=== PATIENT | male | born 1980 | race Caucasian/White ===

== ENCOUNTER 2017-10-22 09:42 | Emergency (ER) | payer BC, SELFPAY ==
[2017-10-22 09:44] VITALS: BP 165/107; PULSE 106; RESP 16; TEMP 37.4; O2SAT 99; BMI 31.1
--- NOTE | 2017-10-22 10:00 | ED.VISSUMM ---
- ER Visit Summary Date of Service: 10/22/17 Chief Complaint: Abdominal pain History of Present Illness: The patient is a [address] Rock. He reports that he has had abdominal pain for approximately 1 year. It worsened yesterday. It is a burning periumbilical pain that is 9 out of 10 at worst and 7 out of 10 currently. Is worsened by movement. She relieved by pressure. Reports she typically nauseated and vomited once in the morning for the past year. However, he is vomited 3 times in the past 24 hours. No blood in his emesis. He reports he had 4 episodes of diarrhea yesterday. He has not had diarrhea today. No blood in stools or black tarry stools. No dysuria or frequency. He has had subjective fever and chills. No family history of Crohn's or ulcerative colitis. Physical Examination: Vitals: Stable. Afebrile. General: Well-nourished and well-developed. Head: Normocephalic atraumatic. Neck: Supple, no lymphadenopathy. No JVD. Nontender. Cardiovascular: Regular rate and rhythm. No murmurs. Respiratory: No respiratory distress. Clear to auscultation bilaterally. Abdominal: Soft, mild diffuse tenderness palpation is worst in the suprapubic region, nondistended, normal bowel sounds. No guarding, rebound, or peritoneal signs. Back: Nontender. Extremities: Nontender, no edema. Skin: Normal color, no rash. Neurologic: Alert and oriented ?3. Cranial nerves II through XII are intact. Normal strength and sensation. Psych: Normal affect. Test Results: EKG shows sinus arrhythmia at 61. Troponins negative. UA is negative. Left is marked for total protein of 8.7, total bili 1.3, direct bili 0.32, ALT of 126, AST 116. Lipase is normal. Chem-7 is normal. CBC is marked for hemoglobin is 17.5, segmented neutrophils 72, lymphocytes 17. Emergency Department Course and Treatment: Patient had an IV placed. He was given Zofran and Toradol IV. He was given a GI cocktail p.o. He is resting comfortably. Treatment Plan: Patient will be discharged with Bentyl and Zofran. Instructed to decrease his alcohol consumption. Follow-up with his primary care physician in 3-5 days if not improving. Return to the emergency department for any worsening symptoms. Disposition: To home in improved and stable condition. Impression: 1. Abdominal pain, chronic. 2. Alcohol abuse. This note was generated with [employer] dictation software. It may contain incorrect words, spelling, and punctuation that were not noted in review of the chart prior to signing ED Disposition - Plan for ED Patient: Chief Complaint: Abd Pain Instructions: ED Abdominal Pain Unkn Cause Prescriptions: Ondansetron [Zofran Odt] 4 mg PO Q8H PRN PRN #10 tablet PRN Reason: Nausea Dicyclomine HCl [Bentyl] 20 mg PO TIDAC #20 capsule Referrals: Berto Rock DO [Primary Care Provider] - 3-5 Days if not improving
[2017-10-22 10:10] LABS: Absolute Lymphocyte Count 1.62 X10^3/ul (0.83-4.51); Absolute Neutrophil Count 6.7 X10^3/uL (2.0-7.7); Basophil# 0.02 X10^3/uL; Basophil% 0.2 % (0-1); Eosinophil# 0.15 X10^3/uL; Eosinophils% 1.6 % (0-5); Hemoglobin 17.5 g/dl (13.0-16.5); Lymphocyte # 1.62 X10^3/ul (4.0); Lymphocyte % 17.4 % (19-41); Mean Corp Hgb Conc 34.3 g/gl (32-36); Mean Corpuscular Hgb 32.6 pg (27.0-32.0); Mean Platelet Vol. 10.4 fl (6.2-12.0); Monocyte# 0.84 X10^3/uL; Neutrophil # 6.67 X10^3/uL (2.7-7.7); Neutrophil % 71.7 % (47-70); Platelet Count 265 K/mm3 (150-450); RBC Distribution Width CV 12.3 % (11.6-14.6); RBC Distribution Width SD 41.9 fl (35.1-43.9); Red Blood Count 5.37 M/mm3 (4.6-6.2); White Blood Count 9.3 K/mm3 (4.4-11.0)
[2017-10-22 10:11] LABS: POSITIVE COUNT NO; POSITIVE DIFFERENTIAL NO; POSITIVE MORPHOLOGY NO
[2017-10-22] MEDS: Ketorolac 30 MG/ML Syringe IV (10:21)
[2017-10-22] MEDS: Ondansetron 4 MG/2 ML Vial IV (10:21)
[2017-10-22] MEDS: 0.9% Normal Saline 1,000 ML 1000 ML IV (10:22)
[2017-10-22] MEDS: Mag Hydrox/Al Hydrox/Simeth 30 ML UDC PO (10:22)
[2017-10-22 10:23] LABS: AST(SGOT) 116 U/L (15-37); Alanine Aminotransfer ALT/SGPT 126 U/L (16-61); Albumin, Serum 4.7 g/dL (3.2-5.0); Alkaline Phosphatase 110 U/L (45-117); Anion Gap 10 (5-15); BUN 13 mg/dL (7-18); BUN/Creat Ratio 13.8 RATIO (10-20); Bilirubin, Direct 0.32 mg/dL (0.00-0.30); Calcium,Total 9.4 mg/dL (8.5-10.1); Chloride 100 mmol/L (98-107); Creatinine, Serum 0.94 mg/dL (0.70-1.30); EST Glomerular Filtration Rate 96 mL/min (>60); Est Glom Filt Rate - Afr Amer 116 mL/min (>60); Glucose 80 mg/dL (74-106); Lipase 86 U/L (73-393); Potassium 3.8 mmol/L (3.5-5.1); Protein, Total 8.7 g/dL (6.4-8.2); Sodium Level 135 mmol/L (136-145)
--- NOTE | 2017-10-22 10:54 | NURSING ---
NO OLD EKGS
[2017-10-22 12:08] VITALS: BP 156/82; PULSE 74; RESP 16; O2SAT 98
[2017-10-22 12:12] LABS: Red Blood Cells-Urine 0 SEEN /hpf (0-5)
[2017-10-22 12:24] LABS: Color, Urine Yellow (Yellow); Glucose, Dipstick Normal (Normal); Leukocyte Esterase-Dipstick 25 /ul (Negative); Nitrite-Dipstick Negative (Negative); Occult Blood-Urine Negative /ul (Negative); Protein-Dipstick 100 mg/dl (Negative); Specific Gravity, Urine 1.025 (1.002-1.030); Urine Bilirubin Dipstick Negative (Negative); Urine Clarity Clear (Clear); Urine Urobilinogen 1 mg/dl (Normal)
[2017-10-22 12:30] LABS: Ketone-Dipstick 150 mg/dl (Negative)
[2017-10-22 12:33] LABS: Bacteria 1+ /hpf (None Seen); Mucous, Urine 4+ /hpf (<or=2+); Squamous Epithelial Cells - UA 0-5 SEEN /hpf (0-5); White Blood Cells 0-5 SEEN /hpf (0-5)
[2017-10-22 13:10] VITALS: BP 150/89; PULSE 86; RESP 16; O2SAT 98
== END 2017-10-22 13:12 | disposition home or self-care (01) ==
LOC: ED 10:14
PROVIDERS: Emergency Provider Emergency Medicine; Family Provider Student in an Organized Health Care Education/Training Program; PCP Student in an Organized Health Care Education/Training Program
DX: R10.9 Unspecified abdominal pain (principal); G89.29 Other chronic pain; F10.10 Alcohol abuse, uncomplicated; Y90.9 Presence of alcohol in blood, level not specified; Z72.0 Tobacco use
CPT/HCPCS: 80048; 80076; 81001; 83690; 84484; 85025; 93005; 96361; 96374; 96375; 99283; J7030; A4216; J2405

== ENCOUNTER 2019-07-01 19:21 | Emergency (ER) | payer BC, SELFPAY ==
[2019-05-09 07:27] VITALS: BMI 31.1
[2019-07-01 19:22] VITALS: BP 132/79; PULSE 97; RESP 20; TEMP 36.6; O2SAT 97; BMI 31.4
[2019-07-01 19:27] VITALS: BP 132/79; PULSE 97; RESP 20; TEMP 36.6; O2SAT 97
[2019-07-01 20:27] VITALS: BP 144/103; PULSE 77; RESP 16; TEMP 36.6; O2SAT 99
[2019-07-01 20:33] LABS: Absolute Neutrophil Count 5.5 X10^3/uL (2.0-7.7); Basophil# 0.04 X10^3/uL; Basophil% 0.4 % (0-1); Eosinophil# 0.08 X10^3/uL; Eosinophils% 0.9 % (0-5); Hematocrit 47.3 % (40-54); Hemoglobin 16.2 g/dL (13.0-16.5); Lymphocyte % 30.5 % (19-41); Mean Corp Hgb Conc 34.2 g/dL (32-36); Mean Corpuscular Hgb 32.9 pg (27.0-32.0); Mean Corpuscular Volume 95.9 fL (80-94); Mean Platelet Vol. 10.1 fl (6.2-12.0); Monocyte# 0.69 X10^3/uL; Monocyte% 7.5 % (0-10); NRBC Flagged by Analyzer 0 % (0-5); Neutrophil # 5.54 X10^3/uL (2.7-7.7); Neutrophil % 60.3 % (47-70); Platelet Count 280 K/mm3 (150-450); RBC Distribution Width CV 11.8 % (11.6-14.6); RBC Distribution Width SD 41.1 fl (35.1-43.9); Red Blood Count 4.93 M/mm3 (4.6-6.2); White Blood Count 9.2 K/mm3 (4.4-11.0)
--- NOTE | 2019-07-01 20:42 | RAD_ITS ---
STUDY: X-RAY CHEST REASON FOR EXAM: Male, 38 years old. Chills, fatigue, diarrhea TECHNIQUE: Single frontal view of the chest. COMPARISON: None. FINDINGS: Cardiac silhouette unremarkable. Pulmonary vascularity unremarkable. Aorta unremarkable. Minimal patchy left basilar opacity. No pleural effusions. Upper abdomen unremarkable. Osseous structures intact. No pneumothorax. RAD/Chest 1 View (Portable) IMPRESSION: Minimal patchy opacity at the left lung base is nonspecific and may represent pneumonia in the appropriate clinical setting. Electronically Signed: Johnny Garza, at 21:48 EDT Tel , Service support ,
[2019-07-01 21:05] LABS: ALB/GLOB Ratio 1.2 RATIO (0.9-2.4); AST(SGOT) 36 U/L (15-37); Alanine Aminotransfer ALT/SGPT 46 U/L (16-61); Albumin, Serum 4.2 g/dL (3.2-5.0); Alkaline Phosphatase 96 U/L (45-117); Anion Gap 11 (5-15); BUN 12 mg/dL (7-18); BUN/Creat Ratio 12.6 RATIO (10-20); Calcium,Total 8.5 mg/dL (8.5-10.1); Chloride 107 mmol/L (98-107); Creatinine, Serum 0.95 mg/dL (0.70-1.30); EST Glomerular Filtration Rate 94 mL/min (>60); Est Glom Filt Rate - Afr Amer 113 mL/min (>60); Estimated Creatinine Clearance 90.81 ml/min; Globulin 3.5 g/dL (2.2-4.2); Glucose 94 mg/dL (74-106); Protein, Total 7.7 g/dL (6.4-8.2); Sodium Level 139 mmol/L (136-145)
--- NOTE | 2019-07-01 21:12 | ED.VISSUMM ---
- ER Visit Summary Date of Service: 07/01/19 Chief Complaint: Fever and shortness of breath History of Present Illness: The patient is a 38 M who presents with fever and shortness of breath that is been getting worse over the past 3 days. Patient did not take his temperature at home but felt like he has fever and chills. Patient also admits to some sweats. Patient states he does get short of breath with any exertion. Patient states he gets short of breath when he walks across the room. Patient admits to some abdominal pain, nausea, vomiting, and diarrhea. Patient also admits to a cough. Patient admits to some chronic neck and back pain. Patient denies any dysuria or hematuria. Patient denies any chest pain. Patient denies any sick contacts. Physical Examination: Vital signs are stable. Patient is afebrile. Patient is in no acute distress. Oral mucosa is pink and moist. Neck is supple. Trachea is midline. There is no JVD noted. Heart was regular rate and rhythm. Lungs are clear and equal bilaterally. Abdomen is soft. Bowel sounds are normal. There is no tenderness. There is no rebound or guarding noted. Skin is warm dry. Cranial nerves II through XII are intact. There are no focal motor or sensory deficits noted. Extremities are intact. There is no calf tenderness or edema. Test Results: CBC and metabolic profile were all within normal limits. Rapid strep, influenza, and RSV swabs were obtained were all normal. Portable chest x-ray was obtained. There is a left lower lobe infiltrate. This was interpreted by the radiologist and reviewed by myself. Emergency Department Course and Treatment: Patient was given his first dose of Zithromax here. Patient was given a prescription for Zithromax. Patient was instructed to follow-up with his primary care physician in 5 to 7 days. Patient understood and was agreeable with the plan. All questions were answered. Disposition: Discharge home Impression: 1. Community-acquired pneumonia This note was generated with [employer] dictation software. It may contain incorrect words, spelling, and punctuation that were not noted in review of the chart prior to signing ED Disposition - Plan for ED Patient: Disposition: Home or Assisted Living Diagnosis: Community acquired pneumonia Instructions: ED PNEUMONITIS Adult Prescriptions: Azithromycin [Zithromax] 250 mg PO DAILY #4 tab Prescription Printed Referrals: Rock,Berto, DO [Primary Care Provider] - 5-7 Days
[2019-07-01 21:14] VITALS: BP 149/85; PULSE 77; RESP 17; TEMP 37; O2SAT 98
[2019-07-01 21:21] VITALS: BP 137/102; PULSE 82; RESP 17; O2SAT 97
[2019-07-01 22:08] VITALS: BP 137/102; PULSE 83; RESP 17; TEMP 37; O2SAT 98
== END 2019-07-01 22:49 | disposition home or self-care (01) ==
PROVIDERS: Emergency Provider Emergency Medicine; PCP Student in an Organized Health Care Education/Training Program
DX: J18.9 Pneumonia, unspecified organism (principal); F17.200 Nicotine dependence, unspecified, uncomplicated
CPT/HCPCS: 71045; 80053; 85025; 87804; 87807; 87880; 99283

== ENCOUNTER 2019-10-10 22:07 | Emergency (ER) | payer SELFPAY ==
[2019-10-10 22:08] VITALS: BP 140/95; PULSE 89; RESP 18; TEMP 36.1; O2SAT 100; BMI 32.9
--- NOTE | 2019-10-10 22:21 | ED.VIS.INJ ---
History of Present Illness Chief Complaint: Laceration Informant: Patient Onset: Today Mechanism/Context: Blunt Injury, Incised Quality of Pain: Dull, Aching Location: Anterior right tibia Current Severity: Mild Maximum Severity: Moderate Worsened by: Weightbearing Relieved by: Nothing Associated Symptoms: Negative for: Parasthesias, Weakness, Loss of function, Inability to ambulate, Loss of consciousness Narrative: Patient is a 38-year-old male who was running in friend's yard. He was unaware that there was a fence that was knee height. He ran into the fence. He sustained 2 lacerations to his anterior right leg. He complains of pain that he localizes over the tibia. He denies paresthesia, anesthesia medics. He denies inability to ambulate. He does not recall his last tetanus shot. He is not on an anticoagulant. Tetanus Immunization: Unknown Recent Illness/Hospitalization: No - Past Medical History (1) No significant past medical history Status: Acute Past Medical History - Allergies and Home Meds Allergies/Adverse Reactions: Allergies No Known Allergies Allergy (Verified 10/10/19 22:09) Primary Care Physician: Berto Rock DO [Primary Care Provider] - Past Medical History: None Surgical History: no surgical history Lives: Alone Smoking Status: Current every day smoker Alcohol: Rare Drugs: None Review of Systems Musculoskeletal: Reports: Swelling, Extremity Pain. Denies: Myalgias, Arthralgias, Neck pain, Back pain, -, - Skin: Reports: Wounds. Denies: Rash Neurological: Denies: Weakness, Parasthesia, Numbness Hematologic: Denies: Easy bruising, Easy bleeding Physical Exam Vital Signs/Narrative: Vital Signs Temp Pulse Resp BP Pulse Ox 10/10/19 22:08 97 F L 89 18 140/95 H 100 Inital Vital Signs reviewed: Yes General: Well nourished, Well developed Head: Normocephalic, Atraumatic Eyes: Perrl, EOMI Cardiovascular: Regular rate, Regular rhythm Respiratory: No distress Extremeties: Is pain the patient over the mid right tibia. There are 2 lacerations which will require repair. DP PT pulse are palpable. There is no pain the patient over the lateral medial malleolus. Is no pain the patient over the joint line. The patella is non-ballotable. There is no effusion. He is able to extend and flex with discomfort. There is no limitation to his flexion extension. Skin: Normal color, Trauma Neurological: Alert, Oriented x3, Cranial nerves II-XII grossly intact, Normal Strength, Normal Sensation Psychological: Normal affect Diagnostic/Tx/Re-eval Chest X-Ray - ED: 2 View, Read by ED Physician 2 view x-ray of the tibia and fibula reveal soft tissue injury. No foreign body. No fracture. - Medical Decision Making Rate was obtained to evaluate for fracture and foreign body. Please see procedure note. Laceration No standard instances Length: 4.13 in Depth: Sub Q Prep: Tyler Laceration Repair: Lidocaine Irrigated (ml): 250 Number of Sutures/Cat: 22 - 21 vertical mattress stitches, 1 simple mattress stitch and 3 subcu stitches Stitch Description: Vicryl - Skin was closed using 4-0 Ethilon. Subcu stitches, 4-0 Vicryl, Ethilon, Vertical, Mattress, 4-0 ED Disposition - Plan for ED Patient: Disposition: Home or Assisted Living Diagnosis: Laceration of right lower leg Instructions: ED Laceration Ext Sutr Stap Tape Prescriptions: Hydrocodone Bitart/Apap 5-325 [[place] 5MG-325MG] 1 tab PO Q6H PRN PRN 1 Days #4 tab PRN Reason: Pain Prescription Printed Referrals: Berto Rock DO [Primary Care Provider] - 10-14 Days suture removal
[2019-10-10] MEDS: Morphine 4 MG/ML Syringe IV (22:30)
[2019-10-10] MEDS: Diphth,Pertuss(Acell),Tet Vac 0.5 ML Vial IM (22:32)
--- NOTE | 2019-10-10 22:33 | RAD_ITS ---
STUDY: X-RAY - RIGHT TIBIA AND FIBULA REASON FOR EXAM: Male, 38 years old. Laceration. TECHNIQUE: 2 view(s) of the tibia and fibula were obtained. COMPARISON: None. FINDINGS: Normal visualized tibia. Normal visualized fibula. There is no acute fracture, dislocation or destructive osseous pathology. The knee and ankle are intact. There is soft tissue injury over the anterior orr. There is no opaque foreign body. RAD/Tibia & Fibula 2 Views IMPRESSION: Soft tissue laceration of the upper orr without foreign body. There is no associated fracture or dislocation. Electronically Signed: Jose David Washington DO at 22:54 EDT Tel [phone], Service support ,
[2019-10-10] MEDS: Ketorolac 15 MG/ML Vial IV (23:06)
[2019-10-11 00:11] VITALS: BP 132/82; PULSE 78; RESP 18; O2SAT 98
== END 2019-10-11 00:12 | disposition home or self-care (01) ==
PROVIDERS: Emergency Provider Emergency Medicine; PCP Student in an Organized Health Care Education/Training Program
DX: S81.811A Laceration without foreign body, right lower leg, initial encounter (principal); F17.200 Nicotine dependence, unspecified, uncomplicated; Y93.02 Activity, running
CPT/HCPCS: 12002; 73590; 90471; 90715; 96372; 96374; 96375; 99285; A4216

== ENCOUNTER 2020-05-03 01:52 | Emergency (ER) | payer OTHER, SELFPAY ==
[2020-05-03 01:53] VITALS: BP 137/101; PULSE 105; RESP 16; TEMP 36.1; O2SAT 100; BMI 34.6
--- NOTE | 2020-05-03 02:04 | ED.DCSUM_ITS ---
- ER Visit Summary Date of Service: 05/03/20 Chief Complaint: Left calf pain History of Present Illness: The patient is a [address] Rock. Patient reports that 3 days ago he had surgery on his left foot by Dr. Hidalgo. States that he had a bone spur removed and a tendon repair. He reports that he is not having any pain in that foot. However, he has cramping in his left calf that began yesterday. Is a sharp pain is 1010 at worst and 7-10 currently. Is worsened by movement. Is unrelieved by rest and Vicodin. He denies any numbness or weakness. Patient denies any personal family history of DVT. He denies any chest pain or shortness of breath. No fever or chills. Physical Examination: Vitals: Stable. Afebrile. General: Well-nourished and well-developed. Head: Normocephalic atraumatic. Neck: Supple, no lymphadenopathy. No JVD. Nontender. Cardiovascular: Regular rate and rhythm. No murmurs. Respiratory: No respiratory distress. Clear to auscultation bilaterally. Abdominal: Soft, nontender, nondistended, normal bowel sounds. No guarding, rebound, or peritoneal signs. Back: Nontender. Extremities: Dressing over his left foot and ankle that the patient refused to have removed. He has moderate tenderness palpation over his left calf. There is no spasm present. There is no edema. Has mild tenderness palpation on the medial distal left thigh. He has normal sensation to light touch. Skin: Normal color, no rash. Neurologic: Alert and oriented ?3. Cranial nerves II through XII are intact. Normal strength and sensation. Psych: Normal affect. Emergency Department Course and Treatment: I had a prolonged discussion the patient about the possibility of a DVT. Unfortunately I am not able to get a an ultrasound tonight. He was given oxycodone. Treatment Plan: Patient be discharged prescription for 10 oxycodone. A outpatient Doppler is ordered for the morning. Patient will be sent back to the emergency department if this is positive. Otherwise he is to follow-up with the [facility] in 1 to 2 days if not improving. Return to the emergency department for any worsening symptoms. Disposition: To home in improved and stable condition. Impression: 1. 3-day status post left foot surgery. 2. Left calf pain. This note was generated with [employer] dictation software. It may contain incorrect words, spelling, and punctuation that were not noted in review of the chart prior to signing ED Disposition - Plan for ED Patient: Disposition: Home or Assisted Living Instructions: ED Post Op Wound Check, Pain Prescriptions: Oxycodone HCl/Acetaminophen [Percocet 5/325] 1 tab PO Q6H PRN PRN 3 Days #12 tab PRN Reason: Pain Prescription Printed Referrals: Edwin Hidalgo DPM [STAFF PHYSICIAN] - 1-2 Days if not improving
[2020-05-03] MEDS: oxyCODONE 5 MG Tablet 10 MG PO (02:12)
[2020-05-03 02:26] VITALS: BP 137/101; PULSE 105; RESP 16; O2SAT 100
== END 2020-05-03 02:27 | disposition home or self-care (01) ==
PROVIDERS: Emergency Provider Emergency Medicine; PCP Student in an Organized Health Care Education/Training Program
DX: M79.662 Pain in left lower leg (principal); F17.200 Nicotine dependence, unspecified, uncomplicated
CPT/HCPCS: 99283

== ENCOUNTER → 2020-05-04 10:57 | Outpatient (CLI) | payer OTHER, SELFPAY ==
[2020-05-03 01:53] VITALS: BMI 34.6
--- NOTE | 2020-05-04 11:00 | VDLE_ITS ---
Reason For Study: pain in left leg Procedure LEFT This is a venous duplex using B-mode, color GSV is normal. flow and spectral Doppler. CFV is compressible, spontaneous, phasic, Exam performed in department. competent, and demonstrates normal The exam was abbreviated due to the COVID 19 augmentation. protocol. FV is compressible, spontaneous, phasic, The exam was diagnostic. competent and demonstrates normal A preliminary report was called and/or faxed augmentation. to Dr. Rock. POP V is compressible, spontaneous, phasic, competent and demonstrates normal augmentation. T/P Trunk is compressible. PTV, Peroneal V, and Soleus V are dilated and noncompressible. Interpretation Summary Acute deep venous thrombosis left posterior tibial, peroneal, and soleus veins Patent and compressible left great saphenous vein Covid-19 protocol Ordering Physician: Kai Wall Performed By: Joaquin Caceres RVT
== END ==
LOC: CVS 10:59
PROVIDERS: PCP Student in an Organized Health Care Education/Training Program; Visit Provider Emergency Medicine
DX: M79.605 Pain in left leg (principal)
CPT/HCPCS: 93971

== ENCOUNTER 2020-05-04 12:39 | Emergency (ER) | payer OTHER, SELFPAY ==
[2020-05-03 01:53] VITALS: BMI 34.6
[2020-05-04 12:41] VITALS: BP 170/113; PULSE 105; RESP 16; TEMP 36.3; O2SAT 100; BMI 33.2
--- NOTE | 2020-05-04 13:00 | ED.VISSUMM ---
- ER Visit Summary Date of Service: 05/04/20 Chief Complaint: Left calf pain with noninvasive studies showing a left lower leg DVT History of Present Illness: The patient is a 39 M that is post left foot surgery last Sunday. He developed left lower leg pain and swelling. Was seen in the emergency department last night. Outpatient ultrasound set up this morning. Diagnosed with a left calf DVT. Denies any chest pain or shortness of breath. Primary care physician office sent him to the emergency department after his ultrasound was positive. He has never had a DVT before. Physical Examination: Middle-aged male no acute distress vital signs stable afebrile. H EENT exam unremarkable. Neck nontender no JVD. No lymphadenopathy. Lungs clear to auscultation bilaterally. Heart regular rhythm no murmur. Abdomen soft nontender. Strength is moves all 4. Neurovascular intact. He has a dressing wrap on his left ankle and foot. His toes have normal sensation. They are warm to the touch. Normal cap refill. He does have tenderness and mild swelling of his left calf. Above his knee he has no pain or swelling. Neurologically is awake and alert. No focal motor deficits. Test Results: Outpatient noninvasive study left lower extremity today shows DVT in the left calf of the posterior tibial and peroneal veins. Below the knee. Emergency Department Course and Treatment: 39-year-old no seen past medical history postop left calf DVT. Will be started on Eliquis and follow-up with his foot surgeon his primary care physician. Treatment Plan: Eliquis and outpatient follow-up Disposition: Discharge Impression: Postop left calf DVT This note was generated with [employer] dictation software. It may contain incorrect words, spelling, and punctuation that were not noted in review of the chart prior to signing ED Disposition - Plan for ED Patient: Referrals: Berto Rock DO [Primary Care Provider] -
--- NOTE | 2020-05-04 13:10 | ED.DEP ---
ED Disposition - Plan for ED Patient: Disposition: Home or Assisted Living Instructions: ED Deep Vein Thrombosis (DVT) Prescriptions: Apixaban [Eliquis] 5 mg PO BID #74 tab Prescription Printed Referrals: Berto Rock DO [Primary Care Provider] - As Needed Edwin Hidalgo DPM [STAFF PHYSICIAN] - Keep Tyrese appointment Additional Instructions: Up with your foot surgeon. Continue your anticoagulate as prescribed. Be very careful not to hit your head or cut yourself. If you do fall and hit your head you will need to be evaluated in the emergency department.
[2020-05-04] MEDS: APIXABAN 5 MG TABLET 10 MG PO (13:22)
== END 2020-05-04 13:38 | disposition home or self-care (01) ==
PROVIDERS: Emergency Provider Emergency Medicine; PCP Student in an Organized Health Care Education/Training Program
DX: I82.4Z2 Acute embolism and thrombosis of unspecified deep veins of left distal lower extremity (principal); F17.200 Nicotine dependence, unspecified, uncomplicated
CPT/HCPCS: 99283

== ENCOUNTER 2021-12-08 09:46 | Emergency (ER) | payer SELFPAY ==
[2021-12-08 09:47] VITALS: BP 164/109; PULSE 71; RESP 16; TEMP 36.3; O2SAT 99
--- NOTE | 2021-12-08 09:59 | EDS_ITS ---
HPI History of Present Illness Chief Complaint: Chest Pain Detail of Chief Complaint: Chest pain that started yesterday Informant: patient Narrative Narrative: Patient presents the emergency room with some chest discomfort since yesterday. He describes an intermittent sharp stabbing pain in his chest that will last for a few seconds. Patient also is here more because of his pain in his left arm that he has had for about a year but became worse since working yesterday. Patient describes a sharp pain in his left arm that centered at the elbow but radiates towards the hand and also to the top of the left shoulder. He denies any neck pain. He denies any trauma. Patient does have history of DVT in the left leg that was treated after he had surgery on the left ankle years ago. PFSH [facility] Medical History (Updated 12/08/21 @ 12:[address] Brayan Panda, ) Arthritis Gout Shoulder pain Home Medications naproxen 500 mg tablet 500 mg PO BID #14 tabs 12/08/21 [Rx Last Taken Unknown] tramadol 50 mg tablet 50 mg PO Q4H PRN PRN Pain 3 days #20 tabs 12/08/21 [Rx Last Taken Unknown] Allergy/AdvReac Type Severity Reaction Status Date / Time No Known Allergies Allergy Verified 12/08/21 09:50 Surgical History History of knee surgery Social History (Updated 05/09/19 @ 07:27 by JULIA Frey) Smoking Status: Current every day smoker tobacco type: cigarettes alcohol intake: current alcohol intake frequency: a few times a month Alcohol type: beer ROS ROS ED Review of Systems ROS Unobtainable: other Constitutional Constitutional ED: Reports lethargy; Denies chills, fever(s), sweats or weight loss Eyes Eyes: Denies blurry vision, change in vision or diplopia ENT ENT ED: Denies rhinorrhea or sore throat Cardiovascular Cardiovascular: Reports chest pain; Denies orthopnea or racing heartbeat Respiratory/Chest Respiratory/Chest: Denies cough, dyspnea, dyspnea on exertion, orthopnea or sputum Gastrointestinal Gastrointestinal: Denies abdominal pain, diarrhea, nausea or vomiting Genitourinary Genitourinary ED: Denies dysuria, hematuria or urinary frequency Musculoskeletal Musculoskeletal: Reports other Details: Left arm pain ; Denies arthralgias, back pain, myalgias or neck pain Integumentary Denies abscess, Abrasions or rash Neurologic Neurologic: Denies headache(s) or weakness Psychiatric Psychiatric: Denies anxiety, depression or suicidal thoughts Endocrine Endocrinology: Denies polydipsia, polyphagia or polyuria Hematologic/Lymphatic Hematologic/Lymphatic: Denies easy bleeding, easy bruising or lymphadenopathy Allergic/Immunologic Allergic/Immunologic ED: Denies mouth swelling, tongue swelling or urticaria EXAM Physical Exam Const Vital Signs: 12/08/21 09:47 12/08/21 09:50 12/08/21 10:18 Temperature 97.3 F L Temperature Source Temporal Pulse Rate 71 Respiratory Rate 16 Respiratory Pattern Normal Blood Pressure 164/109 H Blood Pressure Mean 127 Pulse Ox 99 Oxygen Delivery Method Room Air Room Air Positive well nourished and well developed General Appearance ED: well developed and NAD HEENT Reports TM's clear and moist mucous membranes normocephalic and atraumatic; Negative for trauma or tenderness Tympanic Membrane ED: Yes TM's clear Eyes PERRL and EOMs intact bilaterally General Eye ED: Negative for pale conjunctiva or scleral icterus Neck no lymphadenopathy, supple and no JVD General: Negative for tenderness Chest Wall inspection of chest normal and palpation of chest normal Chest: Negative for tenderness Resp normal respiratory effort and clear to auscultation bilaterally Effort and Inspection: Negative for respiratory distress or pain with movement Auscultation: Negative for rhonchi, wheezes or diminished lung sounds Cardio regular rate, regular rhythm, S1 normal heart sound, S2 normal heart sound and no murmurs Peripheral Pulses: pulses 2+ throughout GI normal to inspection, nondistended, normoactive bowel sounds, soft to palpation, non-tender, non-distended and no masses Back/Spine no CVA tenderness and no thoracic nor lumbar tenderness Extremity Extremity Narrative: Left arm-appearance of the arm is normal without evidence of edema. He has normal pulses. He has normal sensation. He has normal range of motion of his digits. General Extremety ED: Negative for edema General Extremity: Negative for edema Neuro oriented x3, CN's II-XII intact bilaterally, no sensory deficits noted and gait normal Sensorium / Orientation: awake, alert, oriented to person, oriented to place and oriented to time Motor Exam: strength 5/5 throughout and strength abnormal Psych mental status grossly normal Skin no rashes or lesions noted and no wounds MDM MDM MDM Narrative Medical decision making narrative: Established on rival. Patient was given morphine and Zofran. EKG showed a sinus rhythm with rate of [address] segment changes noted. Troponin was normal. D-dimer was normal. Lab work otherwise unremarkable. At this point his chest pain is very atypical I do not feel is cardiac. Patient also having this arm pain that he has had for a long time and that sounds neuropathic. Patient referred to his orthopedic surgeon Dr. Sam for follow-up. He will be given a prescription for Ultram and naproxen. Discharged home in stable condition. Lab Data Attestation: I reviewed the patient's lab results. Labs: Laboratory Results - last 24 hr 12/08/21 12/08/21 12/08/21 10:08 10:08 10:08 WBC 5.7 RBC 4.21 L Hgb 13.6 Hct 40.4 MCV 96.0 H MCH 32.3 H MCHC 33.7 RDW Std Deviation 41.5 RDW Coeff of [place] 11.9 Plt Count 257 MPV 9.5 Immature Gran % (Auto) 0.400 Neut % (Auto) 56.2 Lymph % (Auto) 28.9 [place] % (Auto) 10.6 H Eos % (Auto) 3.5 Baso % (Auto) 0.4 Absolute Neuts (auto) 3.2 Absolute Lymphs (auto) 1.64 Nucleated RBC % 0 D-Dimer Quant (PE/DVT) 0.43 Sodium 140 Potassium 3.7 Chloride 107 Carbon Dioxide 27.0 Anion Gap 6 BUN 8 Creatinine 0.76 Estim Creat Clear Calc 114.26 Est GFR (MDRD) Af Amer 144 Est GFR (MDRD) Non-Af 119 BUN/Creatinine Ratio 10.5 Glucose 95 Calcium 8.9 Troponin I High Sens 7 Radiography Diagnostic Testing: Clinical Impression(s) from Imaging Studies Chest X-Ray 12/08/21 10:26 IMPRESSION: Normal x-ray examination of the chest. Electronically Signed: Andrae Hutchison MD at 10:52 EDT , 1 view chest x-ray obtained interpreted by myself no acute disease process. Radiology in agreement. EKG Initial EKG: Attestation: I personally reviewed and interpreted this EKG as follows: Comments: Sinus rhythm with a ventricular rate of 69 bpm with no acute ST segment changes Prior EKG tracings: available for review Prior: Unchanged Discharge Plan Triage Chief Complaint: Chest Pain ED Provider: Brayan Panda Dx/Rx/DC Orders Clinical Impression: Chest pain, Neuropathy Instructions: ED Chest Pain, Uncertain Cause, ED Neuropathy, Peripheral, ED Pain, Acute, Uncertain Cause Prescriptions: New tramadol 50 mg tablet 50 mg PO Q4H PRN PRN (Reason: Pain) 3 Days Qty: 20 0RF naproxen 500 mg tablet 500 mg PO BID Qty: 14 0RF Primary Care Provider: Berto Rock Referrals: Davy Sam MD [Non-Staff] - 3-5 Days Berto Rock DO [Primary Care Provider] - Disposition Disposition: Home, Self Care
[2021-12-08] MEDS: Aspirin 81 MG TAB.CHEW 324 MG PO (10:14)
[2021-12-08] MEDS: 0.9% Normal Saline 1,000 ML 150 ML IV (10:15)
[2021-12-08] MEDS: Morphine 4 MG/ML Syringe IV (10:15)
[2021-12-08] MEDS: Ondansetron 4 MG/2 ML Vial IV (10:15)
[2021-12-08 10:20] LABS: Absolute Lymphocyte Count 1.64 X10^3/uL (0.83-4.51); Absolute Neutrophil Count 3.2 X10^3/uL (2.0-7.7); Basophil# 0.02 X10^3/uL; Basophil% 0.4 % (0-1); Eosinophils% 3.5 % (0-5); Hematocrit 40.4 % (40-54); Hemoglobin 13.6 g/dL (13.0-16.5); Lymphocyte # 1.64 X10^3/ul (0.83-4.51); Lymphocyte % 28.9 % (19-41); Mean Corp Hgb Conc 33.7 g/dL (32-36); Mean Corpuscular Hgb 32.3 pg (27.0-32.0); Mean Platelet Vol. 9.5 fl (6.2-12.0); Monocyte% 10.6 % (0-10); NRBC Flagged by Analyzer 0 % (0-5); Neutrophil % 56.2 % (47-70); Platelet Count 257 K/mm3 (150-450); RBC Distribution Width CV 11.9 % (11.6-14.6); RBC Distribution Width SD 41.5 fl (35.1-43.9); Red Blood Count 4.21 M/mm3 (4.6-6.2); White Blood Count 5.7 K/mm3 (4.4-11.0)
--- NOTE | 2021-12-08 10:26 | RAD_ITS ---
STUDY: X-RAY CHEST REASON FOR EXAM: Male, 41 years old. Chest pain TECHNIQUE: Single AP portable view of the chest. COMPARISON: Comparison is made with prior study 07/01/2019. FINDINGS: EKG electrodes are seen. The lungs are clear and expanded. There is no demonstrated pleural abnormality. Normal size heart. Normal mediastinum and my. Normal visualized pulmonary arteries. Normal visualized aortic arch and descending thoracic aorta. There are degenerative changes of the visualized thoracic spine. Normal visualized ribs, clavicles, and shoulders. There is no demonstrated abnormality of the visualized soft tissue structures of the upper abdomen. RAD/Chest 1 View (Portable) IMPRESSION: Normal x-ray examination of the chest. Electronically Signed: Andrae Hutchison MD at 10:52 EDT ,
[2021-12-08 10:35] LABS: D-Dimer Quantitative (DVT/PE) 0.43 FEU/ug/m (0.27-0.49)
[2021-12-08 10:37] LABS: Anion Gap 6 (5-15); BUN 8 mg/dL (7-18); BUN/Creat Ratio 10.5 RATIO (10-20); Calcium,Total 8.9 mg/dL (8.5-10.1); Chloride 107 mmol/L (98-107); Creatinine, Serum 0.76 mg/dL (0.70-1.30); EST Glomerular Filtration Rate 119 mL/min (>60); Est Glom Filt Rate - Afr Amer 144 mL/min (>60); Estimated Creatinine Clearance 114.26 ml/min; Glucose 95 mg/dL (74-106); Potassium 3.7 mmol/L (3.5-5.1); Sodium Level 140 mmol/L (136-145); Troponin-I HS (w/2H Reflex) 7 pg/mL (3.0-78.0)
[2021-12-08 10:46] VITALS: RESP 16
[2021-12-08 11:46] VITALS: RESP 18
[2021-12-08 12:06] VITALS: RESP 18
[2021-12-08 12:16] LABS: Reflex Troponin-HS? (from REC) Y
== END 2021-12-08 12:24 | disposition home or self-care (01) ==
PROVIDERS: Emergency Provider Emergency Medicine; PCP Student in an Organized Health Care Education/Training Program; Visit Provider Emergency Medicine
DX: R07.9 Chest pain, unspecified (principal); G62.9 Polyneuropathy, unspecified; F17.210 Nicotine dependence, cigarettes, uncomplicated; Z86.718 Personal history of other venous thrombosis and embolism
CPT/HCPCS: 71045; 80048; 84484; 85025; 85379; 93005; 96374; 96375; 99284; J7030; A4216; J2405

== ENCOUNTER 2022-09-13 08:51 | Emergency (ER) | payer MEDICAID, SELFPAY ==
[2022-09-13 08:51] VITALS: BP 120/101; PULSE 94; RESP 16; TEMP 36.5; O2SAT 100; BMI 24.9
--- NOTE | 2022-09-13 09:30 | CT_ITS ---
STUDY: CTA CHEST REASON FOR EXAM: Male, 41 years old. Rule out PE. Left calf swelling and burning sensation. History of DVT. RADIATION DOSAGE (If Supplied By Facility): CTDIvol = ( 5.25 ) mGy, DLP = ( 216.59 ) mGycm TECHNIQUE: The examination was performed with the intravenous administration of IV 100mL Isovue-370. Post-processing of the angiographic images was performed, with multiplanar reformation and 3D reconstruction. Individualized dose optimization techniques were used for this CT. COMPARISON: None. FINDINGS: Normal enhancement of the main pulmonary artery and right and left pulmonary arteries. Normal enhancement of the bilateral peripheral pulmonary arteries. There is no demonstrated pulmonary embolism. Normal thoracic aorta and visualized great vessels. There is no demonstrated aortic dissection. Normal heart and pericardium. No coronary artery calcification is seen. Normal mediastinum. Normal hilar regions. Normal visualized trachea and bronchi. The lungs are well expanded. Normal pulmonary parenchyma. Normal pleura. Normal chest wall structures. There are degenerative changes of thoracic spine. Normal visualized upper abdomen. CT/CTA Chest W/WO Contrast IMPRESSION: Normal CTA chest examination, without a demonstrated pulmonary embolism or arterial dissection. Electronically Signed: Andrae Hutchison MD at 11:10 EDT ,
--- NOTE | 2022-09-13 09:31 | EKG12_ITS ---
Test Reason : CP Blood Pressure : / mmHG Vent. Rate : 071 BPM Atrial Rate : 071 BPM P-R Int : 172 ms QRS Dur : 086 ms QT Int : 392 ms P-R-T Axes : 068 073 060 degrees QTc Int : 425 ms Normal sinus rhythm Normal ECG Confirmed by DANISH HENRY, SNOW ([id number]), mapping editor DIANDRA ESPINOZA ([id number]) on 09/14/2022 2:20:20 PM Referred By: Confirmed By:SNOW PENG MD
[2022-09-13 09:51] LABS: Absolute Lymphocyte Count 1.42 X10^3/uL (0.83-4.51); Absolute Neutrophil Count 6.4 X10^3/uL (2.0-7.7); Basophil# 0.03 X10^3/uL; Basophil% 0.4 % (0-1); Eosinophil# 0.08 X10^3/uL; Eosinophils% 0.9 % (0-5); Hematocrit 43.9 % (40-54); Hemoglobin 15.1 g/dL (13.0-16.5); Lymphocyte # 1.42 X10^3/ul (0.83-4.51); Lymphocyte % 16.7 % (19-41); Mean Corp Hgb Conc 34.4 g/dL (32-36); Mean Corpuscular Hgb 31.7 pg (27.0-32.0); Mean Platelet Vol. 9.4 fl (6.2-12.0); Monocyte# 0.53 X10^3/uL; Monocyte% 6.2 % (0-10); NRBC Flagged by Analyzer 0 % (0-5); Neutrophil # 6.42 X10^3/uL (2.7-7.7); Neutrophil % 75.4 % (47-70); Platelet Count 285 K/mm3 (150-450); RBC Distribution Width CV 12.2 % (11.6-14.6); RBC Distribution Width SD 41.5 fl (35.1-43.9); Red Blood Count 4.77 M/mm3 (4.6-6.2); White Blood Count 8.5 K/mm3 (4.4-11.0)
[2022-09-13 10:10] LABS: BNP,B-Type NATRIURETIC PEPTIDE 16.1 pg/mL (0-100)
[2022-09-13] MEDS: Aspirin 81 MG TAB.CHEW 324 MG PO (10:12)
[2022-09-13] MEDS: 0.9% Normal Saline 1,000 ML 1000 ML IV (10:13)
[2022-09-13 10:17] LABS: Anion Gap 3 (5-15); BUN 12 mg/dL (7-18); BUN/Creat Ratio 14.2 RATIO (10-20); Calcium,Total 8.8 mg/dL (8.5-10.1); Chloride 103 mmol/L (98-107); Creatinine, Serum 0.84 mg/dL (0.70-1.30); EST Glomerular Filtration Rate 106 mL/min (>60); Est Glom Filt Rate - Afr Amer 128 mL/min (>60); Estimated Creatinine Clearance 107.11 ml/min; Glucose 105 mg/dL (74-106); Magnesium 2.3 mg/dL (1.6-2.6); Potassium 4.3 mmol/L (3.5-5.1); Sodium Level 135 mmol/L (136-145); Thyroid Stim Hormone (TSH) 0.47 uIU/mL (0.358-3.74); Troponin-I HS 3 pg/mL (3.0-78.0); Troponin-I HS (w/2H Reflex) 3 pg/mL (3.0-78.0)
--- NOTE | 2022-09-13 11:10 | VDLE_ITS ---
Reason For Study: Lt Leg Pain RIGHT LEFT CFV is compressible, spontaneous, phasic, GSV is normal. competent and demonstrates normal CFV is compressible, spontaneous, phasic, augmentation. competent, and demonstrates normal Procedure augmentation. This is a venous duplex using B-mode, color FV is compressible, spontaneous, phasic, flow and spectral Doppler. competent and demonstrates normal Exam performed portable in ED. augmentation. The exam was diagnostic. POP V is compressible, spontaneous, phasic, A preliminary report was called and/or faxed competent and demonstrates normal to Dr. Coello. augmentation. T/P Trunk is compressible. PTV is compressible. LT PerV is compressible. Lt SSV Mid and Dist is NONCOMPRESSIBLE with intraluminal echoes. VL/Venous Duplex US, Unilateral Interpretation Summary Acute superficial vein thrombosis is noted in the left small saphenous vein. Ordering Physician: Omar Coello Referring Physician: Berto Rock Performed By: Kaz Monge RVT
--- NOTE | 2022-09-13 11:11 | EX.ED.DYSGE1 ---
HPI History of Present Illness Chief Complaint: Lower Extremity Injury Narrative Narrative: Patient is a 41-year-old male who is presenting to the ER with multiple complaints. Patient does have a PCP and he went to the office today and they sent him to the ER. Patient states he is lost over 130 pounds since last November. Patient is having pain in his left leg and also short of breath at rest and with exertion. Patient does have a history of DVT in his left leg. Patient was on a medication for several months and then stopped it when the medication ran out for DVT in his left leg. Patient never had a PE. However, patient's brother had blood clots, along with his mother and father. Patient is never any type of blood work or genetic testing to see if he is a proponent for clots. Patient states he does have depression, he did try medication and did not like the side effects and stopped it several months ago. Patient was trying to make an appointment with his PCP today for additional help with depression. Patient lives by himself. Patient does have a history of alcohol abuse, patient no longer drinks. Patient has no illicit drug use. Patient does smoke cigarettes and is trying to decrease. No recent traveling. Patient does work in a factory. Patient has been having pain in his left leg going on for several weeks. The pain is area walking or with rest. Patient is short of breath at rest or with exertion. These symptoms have been going on for weeks to months, patient finally came in today for evaluation. He is not lightheaded or dizzy. He has no chest pain or tightness. No abdominal pain, nausea or vomiting. No other acute complaints. No recent traveling. Patient currently is taking no medication daily. [facility] Medical History (Updated 09/13/22 @ 12:[address] Omar Coello DO) Arthritis Gout Shoulder pain Home Medications naproxen 500 mg tablet 500 mg PO BID #14 tabs 12/08/21 [Rx Last Taken Unknown] tramadol 50 mg tablet 50 mg PO Q4H PRN PRN Pain 3 days #20 tabs 12/08/21 [Rx Last Taken Unknown] Allergy/AdvReac Type Severity Reaction Status Date / Time No Known Allergies Allergy Verified 09/13/22 08:54 Surgical History History of knee surgery Social History (Updated 05/09/19 @ 07:27 by Jagdeep DUMONT, JULIA) Smoking Status: Current every day smoker tobacco type: cigarettes alcohol intake: current alcohol intake frequency: a few times a month Alcohol type: beer ROS ROS ED ROS Narrative REVIEW OF SYSTEMS: Unless otherwise stated in this report the patient's positive and negative responses for review of systems for constitutional, eyes, ENT, cardiovascular, respiratory, gastrointestinal, neurological, , musculoskeletal, and integument systems and related systems to the presenting problem are either stated in the history of present illness or were not pertinent or were negative for the symptoms and/or complaints related to the presenting medical problem. EXAM Physical Exam Narrative Exam Narrative: Vital signs reviewed and patient is not hypoxic. General: The patient appears well and in no apparent distress. Patient is resting comfortably on cart. Not toxic, lethargic, or listless. Skin: Warm, dry, no pallor noted. There is no rash noted. Head: Normocephalic, atraumatic Eye: Normal conjunctiva, no drainage, EOMI. PERRL. Ears, Nose, Mouth, and Throat: oral mucosa is moist. Nares patent. Mouth without vesicles. Cardiovascular: Regular Rate and Rhythm, no murmurs, gallops, or rubs Respiratory: Patient is in no distress, no accessory muscle use, lungs are clear to auscultation, no wheezing, rales or rhonchi Back: non-tender, no CVA tenderness bilaterally to percussion. NO CTLS midline or paraspinal tenderness to palpation. GI: Soft, no tenderness to palpation, no masses appreciated. No rebound, guarding, or rigidity noted. Musculoskeletal: The patient has full range of motion of all extremities and joints with no difficulty. Patient has no motor, no sensory deficits. Patient does have pain to the posterior aspect of the left posterior thigh, popliteal fossa, and left calf. Neurological: A&O x4, normal speech, no focal neurological deficits. Psychiatric: Cooperative Const Vital Signs: 09/13/22 08:51 09/13/22 10:15 Temperature 97.7 F L Temperature Source Temporal Pulse Rate 94 Respiratory Rate 16 Blood Pressure 120/101 H Blood Pressure Mean 107 Pulse Ox 100 Oxygen Delivery Method Room Air Room Air [facility] Lab Data Attestation: I reviewed the patient's lab results. Labs: Laboratory Results - last 24 hr 09/13/22 09/13/22 09:40 12:15 WBC 8.5 RBC 4.77 Hgb 15.1 Hct 43.9 MCV 92.0 MCH 31.7 MCHC 34.4 RDW Std Deviation 41.5 RDW Coeff of [place] 12.2 Plt Count 285 MPV 9.4 Immature Gran % (Auto) 0.400 Neut % (Auto) 75.4 H Lymph % (Auto) 16.7 L [place] % (Auto) 6.2 Eos % (Auto) 0.9 Baso % (Auto) 0.4 Absolute Neuts (auto) 6.4 Absolute Lymphs (auto) 1.42 Nucleated RBC % 0 Sodium 135 L Potassium 4.3 Chloride 103 Carbon Dioxide 29.0 Anion Gap 3 L BUN 12 Creatinine 0.84 Estim Creat Clear Calc 107.11 Est GFR (MDRD) Af Amer 128 Est GFR (MDRD) Non-Af 106 BUN/Creatinine Ratio 14.2 Glucose 105 Calcium 8.8 Magnesium 2.3 Troponin I High Sens 3 7 B-Natriuretic Peptide 16.1 TSH 0.47 Radiography Diagnostic Testing: Clinical Impression(s) from Imaging Studies Chest CTA 09/13/22 09:30 IMPRESSION: Normal CTA chest examination, without a demonstrated pulmonary embolism or arterial dissection. Electronically Signed: Andrae Hutchison MD at 11:10 EDT , Venous Doppler Study 09/13/22 11:10 Interpretation Summary Acute superficial vein thrombosis is noted in the left small saphenous vein. Ordering Physician: Omar Coello Referring Physician: Berto Rock Performed By: Kaz Monge, RVT Initial EKG: Attestation: I personally reviewed and interpreted this EKG as follows: Comments: EKG interpretation. Normal sinus rhythm at 71 beats a minute. Normal axis deviation. No acute ST elevation, no acute ectopy. QTc of 425. Treatment and Re-Evaluation :: Patient CTA of the chest shows no acute pulmonary embolism or acute findings. Ultrasound the left leg showed no acute DVT. Lab work shows no acute changes. Lengthy discussion at bedside at discharge. Patient will go back to PCP office and make a follow-up appointment for discussion of depression and continued medical care. Patient is relieved that there is no blood clots in his leg or chest. Patient is having intermittent cramping in his left leg, patient may have mild claudication. Patient will follow-up with PCP and be referred to vascular surgery or orthopedic surgery if needed. Patient does have a history of left knee pain and surgery. patient thankful for care, no questions at discharge. Discharge Plan Triage Chief Complaint: Lower Extremity Injury ED Provider: Omar Coello Dx/Rx/DC Orders Clinical Impression: Depression, Dyspnea, Pain of left leg, Weight loss, Superficial thrombophlebitis Instructions: Depression and the Brain's ..., Prevention Guidelines Men Ages ..., ED Dyspnea, ED Myalgias, ED Thrombophlebitis, Superficial Prescriptions: No Action tramadol 50 mg tablet 50 mg PO Q4H PRN PRN (Reason: Pain) 3 Days Qty: 20 0RF naproxen 500 mg tablet 500 mg PO BID Qty: 14 0RF Stand Alone Forms: ED Work / School Excuse Primary Care Provider: Berto Rock Referrals: Berto Rock, [Primary Care Provider] - Activity Restrictions/Additional Instructions: Follow-up with your PCP again today to make a follow-up appointment as discussed. Start taking full aspirin daily. Increase fluids. A copy of your CAT scan report has been given to you, no signs of blood clots today. Disposition Disposition: Home, Self Care Discharge Date/Time: 09/13/22 13:00
[2022-09-13 11:47] LABS: Reflex Troponin-HS? (from REC) Y
[2022-09-13 12:45] LABS: Troponin-I HS 7 pg/mL (3.0-78.0)
== END 2022-09-13 13:00 | disposition home or self-care (01) ==
PROVIDERS: Emergency Provider Emergency Medicine; PCP Student in an Organized Health Care Education/Training Program; Visit Provider Emergency Medicine
DX: F32.A Depression, unspecified (principal); I82.402 Acute embolism and thrombosis of unspecified deep veins of left lower extremity; R06.00 Dyspnea, unspecified; M79.605 Pain in left leg; F17.210 Nicotine dependence, cigarettes, uncomplicated
CPT/HCPCS: 71275; 80048; 83735; 83880; 84443; 84484; 85025; 93005; 93971; 99282; J7030; Q9967

== ENCOUNTER 2023-06-06 09:46 | Emergency (ER) | payer OTHER, SELFPAY ==
[2023-06-06 09:47] VITALS: BP 164/80; PULSE 100; RESP 18; TEMP 36.3; O2SAT 97; BMI 28.1
[2023-06-06] MEDS: Lidocaine 1% (20 ml mdv) 20 ML Vial 10 ML INFILT (10:04)
[2023-06-06] MEDS: Diphth,Pertuss(Acell),Tet Vac 0.5 ML Vial IM (10:04)
--- NOTE | 2023-06-06 10:40 | EX.ED.GENINJ ---
HPI History of Present Illness Chief Complaint: Laceration Narrative Narrative: Patient is a 42-year-old male who has a 3 cm laceration to the right forehead after he accidentally hit himself with a battery from a nail gun that had to repack on him. This did occur at work, patient does not want to file Worker's Comp. No loss of consciousness. No headache, neck pain, nausea or vomiting. Patient has no vision or hearing changes, no other acute complaints. No active bleeding. Patient is unsure when his last tetanus shot was, possibly in the last 5 to 10 years, but uncertain. Patient is not diabetic. Patient takes Celebrex for arthritic pain, no other acute complaints or concerns. [facility] Medical History (Updated 06/06/23 @ 10:[address] Omar Coello DO) Arthritis Gout Shoulder pain Home Medications naproxen 500 mg tablet 500 mg PO BID #14 tabs 12/08/21 [Rx Last Taken Unknown] tramadol 50 mg tablet 50 mg PO Q4H PRN PRN Pain 3 days #20 tabs 12/08/21 [Rx Last Taken Unknown] Allergy/AdvReac Type Severity Reaction Status Date / Time No Known Allergies Allergy Verified 06/06/23 09:47 Surgical History History of knee surgery Social History (Updated 05/09/19 @ 07:27 by Jagdeep DUMONT, JULIA) Smoking Status: Current every day smoker tobacco type: cigarettes alcohol intake: current alcohol intake frequency: a few times a month Alcohol type: beer ROS ROS ED ROS Narrative REVIEW OF SYSTEMS: Unless otherwise stated in this report the patient's positive and negative responses for review of systems for constitutional, eyes, ENT, cardiovascular, respiratory, gastrointestinal, neurological, , musculoskeletal, and integument systems and related systems to the presenting problem are either stated in the history of present illness or were not pertinent or were negative for the symptoms and/or complaints related to the presenting medical problem. EXAM Physical Exam Narrative Exam Narrative: Vital signs reviewed and patient is not hypoxic. General: The patient appears well and in no apparent distress. Patient is resting comfortably on cart. Not toxic, lethargic, or listless. Skin: Warm, dry, no pallor noted. There is no rash noted. 3 cm, 1 cm deep, laceration as above aponeurosis and loose connective tissue, not involving the glia. Head: Normocephalic, atraumatic; patient has no midline or paracervical tenderness to palpation. Full range of motion of cervical spine with no difficulty. Eye: Normal conjunctiva, no drainage, EOMI. PERRL. Pupils are 4/2 equal, bilateral. Ears, Nose, Mouth, and Throat: oral mucosa is moist. Nares patent. Mouth without vesicles. Dentition intact. Chronic poor dentition, no acute signs of infection or dental injury or trauma. Cardiovascular: Regular Rate and Rhythm, no murmurs, gallops, or rubs Respiratory: Patient is in no distress, no accessory muscle use, lungs are clear to auscultation, no wheezing, rales or rhonchi Musculoskeletal: The patient has full range of motion of all extremities and joints with no difficulty. Patient has no motor, no sensory deficits. Neurological: A&O x4, normal speech, no focal neurological deficits. Psychiatric: Cooperative Const Vital Signs: 06/06/23 09:47 Temperature 97.4 F L Temperature Source Temporal Pulse Rate 100 Respiratory Rate 18 Blood Pressure 164/80 H Blood Pressure Mean 108 Pulse Ox 97 Oxygen Delivery Method Room Air PROC Procedures Other Procedures Procedure(s): Right forehead 3 cm complex laceration repair: Done under sterile conditions. The use of Shur-Clens prep the area. Local injection with lidocaine 1% was used, approximately 5 cc. The wound was irrigated copiously with normal saline. The wound was explored there was no evidence of foreign material. The wound was 1 cm deep, no gluteus/loose tissue/aponeurosis was not involved, but the laceration was completely through the cutaneous layer. The laceration was initially approximated with 2, 5-0 Vicryl that approximated the cutaneous layer well. Then the lac was then closed with the 5, 5-0 nylon sutures placed. Patient tolerated the procedure well. The patient was neurovascularly intact post. the patient had bacitracin applied to the laceration and a dry sterile dressing was place. The patient will need to follow-up in the next 5-7 days for removal. The patient had mentioned that he will be taking the sutures out on his own. Patient recommended follow-up with urgent care, PCP or return to the ER to have his sutures removed in 5 to 7 days. Wound care was discussed at bedside in discharge paperwork. Discharge Plan Triage Chief Complaint: Laceration ED Provider: Omar Coello Dx/Rx/DC Orders Clinical Impression: Head injury, Laceration of forehead Instructions: ED Head Injury (Adult), ED FACIAL LACERATION Suture Tape, ED Laceration Minimize Scars Prescriptions: No Action tramadol 50 mg tablet 50 mg PO Q4H PRN PRN (Reason: Pain) 3 Days Qty: 20 0RF naproxen 500 mg tablet 500 mg PO BID Qty: 14 0RF Primary Care Provider: Berto Rock Referrals: Berto Rock DO [Primary Care Provider] - Activity Restrictions/Additional Instructions: Have sutures removed in 5 to 7 days. Use topical antibiotic ointment 3-4 times a day to help promote healing and prevent infection. Use sunblock 30 if you are out in the sun for more than 5 to 10 minutes for the next 6 months to help minimize pigmentation and scarring. Tetanus shot has been updated today as well, TdAP, he should be covered for the next 10 years unless we have a significant dirty type of wound or injury. Disposition Disposition: Home, Self Care Discharge Date/Time: 06/06/23 10:53
== END 2023-06-06 10:53 | disposition home or self-care (01) ==
LOC: ED 10:48
PROVIDERS: Emergency Provider Emergency Medicine; PCP Student in an Organized Health Care Education/Training Program; Visit Provider Emergency Medicine
DX: S01.81XA Laceration without foreign body of other part of head, initial encounter (principal); F17.210 Nicotine dependence, cigarettes, uncomplicated; Z23 Encounter for immunization; X58.XXXA Exposure to other specified factors, initial encounter
CPT/HCPCS: 12013; 90471; 90715; 99283

== ENCOUNTER 2023-08-09 12:37 | Emergency (ER) | payer SELFPAY ==
[2023-08-09 12:37] VITALS: BP 133/82; PULSE 100; RESP 20; TEMP 36.3; O2SAT 98; BMI 25.2
--- NOTE | 2023-08-09 13:01 | EDS_ITS ---
HPI History of Present Illness Chief Complaint: Cold Sx Informant: patient [facility] Medical History (Updated 08/09/23 @ 12:[address] Shahid Hernandez DO) Shoulder pain Gout Arthritis Home Medications ?Medication ?Instructions ?Recorded ?Last Taken ?Type duloxetine 60 mg capsule,delayed 60 mg PO QDAY depressive disorder 06/15/23 Unknown History release amoxicillin 875 mg-potassium 875 mg PO Q12H #20 TABLETS 08/09/23 Unknown Rx clavulanate 125 mg tablet fluticasone propionate 50 1 spray intranasal BID #16 grams 08/09/23 Unknown Rx mcg/actuation nasal spray,suspension (Flonase Allergy Relief) Allergy/AdvReac Type Severity Reaction Status Date / Time No Known Allergies Allergy Verified 08/09/23 12:46 Surgical History History of knee surgery Social History (Updated 05/09/19 @ 07:27 by Jagdeep DUMONT, PA) Smoking Status: Current every day smoker tobacco type: cigarettes alcohol intake: current alcohol intake frequency: a few times a month Alcohol type: beer EXAM Physical Exam Const Vital Signs: 08/09/23 12:37 Temperature 97.3 F L Temperature Source Temporal Pulse Rate 100 Respiratory Rate 20 H Blood Pressure 133/82 H Blood Pressure Mean 99 Pulse Ox 98 Oxygen Delivery Method Room Air Discharge Plan Triage Chief Complaint: Cold Sx ED Provider: Shahid Hernandez Dx/Rx/DC Orders Clinical Impression: Sinusitis Instructions: ED Sinusitis (Antibiotic Treatment) Prescriptions: New amoxicillin-pot clavulanate 875-125 mg tablet 875 mg PO Q12H Qty: 20 0RF fluticasone propionate [Flonase Allergy Relief] 50 mcg/actuation spray,suspension 1 spray intranasal BID Qty: 16 0RF Rx Instructions: administer into each nostril No Action duloxetine 60 mg capsule,delayed release(DR/EC) 60 mg PO QDAY Primary Care Provider: Berto Rock Referrals: Berto Rock DO [Primary Care Provider] - 1 Week if not improving Print Language: Polish Disposition Disposition: Home, Self Care
--- NOTE | 2023-08-09 13:01 | EX.ED.DYSGE1 ---
HPI History of Present Illness Chief Complaint: Cold Sx Informant: patient Narrative Narrative: 42-year-old male presenting to the emergency room with 3 weeks of nasal congestion headache and drainage. Patient states that he has never had problems with environmental allergens before. He notes that his nose started draining clear fluid and is now turned yellow. He notes a frontal like headache. He denies any dental pain earache or fever. He states he has had some rare sneezing and some mild watery eyes at times. Patient states he tried to go to see his family doctor as insurance had lapsed. [facility] Medical History Shoulder pain Gout Arthritis Home Medications ?Medication ?Instructions ?Recorded ?Last Taken ?Type duloxetine 60 mg capsule,delayed 60 mg PO QDAY depressive disorder 06/15/23 Unknown History release amoxicillin 875 mg-potassium 875 mg PO Q12H #20 TABLETS 08/09/23 Unknown Rx clavulanate 125 mg tablet fluticasone propionate 50 1 spray intranasal BID #16 grams 08/09/23 Unknown Rx mcg/actuation nasal spray,suspension (Flonase Allergy Relief) Allergy/AdvReac Type Severity Reaction Status Date / Time No Known Allergies Allergy Verified 08/09/23 12:46 Surgical History History of knee surgery Social History Smoking Status: Current every day smoker tobacco type: cigarettes alcohol intake: current alcohol intake frequency: a few times a month Alcohol type: beer ROS ROS ED Constitutional Constitutional ED: Denies chills, fever(s) or weight loss Eyes Eyes: Denies change in vision or diplopia ENT ENT ED: Reports rhinorrhea and other Details: Nasal congestion frontal headache ; Denies ear pain or sore throat Cardiovascular Cardiovascular: Denies chest pain, orthopnea, palpitations or racing heartbeat Respiratory/Chest Respiratory/Chest: Denies cough, dyspnea or orthopnea Gastrointestinal Gastrointestinal: Denies abdominal pain, diarrhea, nausea or vomiting Genitourinary Genitourinary ED: Denies dysuria, hematuria or urinary frequency Musculoskeletal Musculoskeletal: Denies arthralgias or myalgias Integumentary Denies abscess or rash Neurologic Neurologic: Reports headache(s); Denies weakness Psychiatric Psychiatric: Denies anxiety, depression, suicidal ideation or suicidal thoughts Endocrine Endocrinology: Denies polydipsia, polyphagia or polyuria Allergic/Immunologic Allergic/Immunologic ED: Denies mouth swelling, tongue swelling or urticaria EXAM Physical Exam Const Vital Signs: 08/09/23 12:37 Temperature 97.3 F L Temperature Source Temporal Pulse Rate 100 Respiratory Rate 20 H Blood Pressure 133/82 H Blood Pressure Mean 99 Pulse Ox 98 Oxygen Delivery Method Room Air Positive well nourished and well developed General Appearance ED: well developed HEENT Reports normocephalic, head/scalp atraumatic and moist mucous membranes HEENT Narrative: Mild tenderness to palpation over the frontal sinuses. Also mild tenderness over the maxillary sinuses. He has bilateral turbinate edema that is pink in nature. Tympanic membranes appear normal. Dentition appears normal. Eyes PERRL and EOMs intact bilaterally Neck no lymphadenopathy, supple and no JVD Resp normal respiratory effort and clear to auscultation bilaterally Cardio regular rate, regular rhythm and no murmurs GI normal to inspection, nondistended, normoactive bowel sounds and non-tender Palpation: soft Back/Spine no CVA tenderness and normal ROM Extremity normal to inspection General Extremety ED: Negative for edema General Extremity: Negative for edema Neuro oriented x3 and CN's II-XII intact bilaterally Sensorium / Orientation: alert Motor Exam: strength 5/5 throughout Psych mental status grossly normal Mood & Affect: Negative for depressed or tearful Skin no rashes or lesions noted and no wounds MDM MDM MDM Narrative Medical decision making narrative: There could be a component of environmental allergens and so avoid use of Flonase. Also write him for Augmentin. Would recommend PCP follow-up return if worsening or concerns History & Record Review Discussion w/independent historian: Patient Discharge Plan Triage Chief Complaint: Cold Sx ED Provider: Shahid Hernandez Dx/Rx/DC Orders Clinical Impression: Sinusitis Instructions: ED Sinusitis (Antibiotic Treatment) Prescriptions: New amoxicillin-pot clavulanate 875-125 mg tablet 875 mg PO Q12H Qty: 20 0RF fluticasone propionate [Flonase Allergy Relief] 50 mcg/actuation spray,suspension 1 spray intranasal BID Qty: 16 0RF Rx Instructions: administer into each nostril No Action duloxetine 60 mg capsule,delayed release(DR/EC) 60 mg PO QDAY Primary Care Provider: Berto Rock Referrals: Berto Rock, [Primary Care Provider] - 1 Week if not improving Print Language: Lebanese Disposition Disposition: Home, Self Care
== END 2023-08-09 13:12 | disposition home or self-care (01) ==
LOC: ED 13:07
PROVIDERS: Emergency Provider Emergency Medicine; PCP Student in an Organized Health Care Education/Training Program; Visit Provider Emergency Medicine
DX: J32.9 Chronic sinusitis, unspecified (principal); F17.210 Nicotine dependence, cigarettes, uncomplicated
CPT/HCPCS: 99282